=== PATIENT | female | born 1955 | race Caucasian/White ===

== ENCOUNTER → 2017-06-11 | Outpatient (CLI) | payer BC ==
[~2017-06-11] MED LIST: ACTOS30 MG PO; GABAPENTIN300 MG OR; JANUVIA50 MG PO; KEFLEX 500MG.500 MG PO; METFORMIN1000 MG PO; NEXIUM40 MG PO; PRAVASTATIN 40M40 MG PO; SYNTHROID 0.0.125 MG PO; VICODIN 5/500 T1 TAB PO
--- NOTE | 2017-06-17 09:16 | RADIOLOGY REPORT PS360 ---
DIG MAMM-SCREEN [facility] W/CAD CAD Screening ORDERING PHYSICIAN : Carmenza Murray APRN PATIENT AGE: 61 years GENDER: Female COMPARISON: Previous mammograms: May 2016, 1999 01 May 20142012 INDICATION: Routine screening taking estrogen. No new complaints. Patient does have history of thyroid cancer mentioned. Family history. Maternal cousin in her 50s with breast cancer TECHNIQUE: Standard CC and MLO images were obtained. R2 CAD reviewed. FINDINGS: Ehmy-[id number]-xevwwnyk scattered fibroglandular elements most evident towards upper-outer quadrant both breast.. No dominant mass nor suspicious calcifications. Overall fairly stable architecture with no significant new findings .. RIGHT BREAST: Of no significant new findings. Suspect there is generous ducts at the superior retroareolar region on right LEFT BREAST: Denser area of apparent fibroglandular tissue at the retroareolar region, lateral superior retroareolar region, again noted and appears stable IMPRESSION: Stable bilateral mammogram. No significant new findings . Follow-up in one year adequate Moderate dense inhomogeneous breast pattern BI-RADS CATEGORY: 2_Benign RECOMMENDED FOLLOWUP: 12M 12 MONTH FOLLOW-UP (A letter has been sent to the patient regarding results of the study.)
== END ==
LOC: RAD 07:55
DX: Z12.31 Encounter for screening mammogram for malignant neoplasm of breast (principal)
CPT/HCPCS: G0202